=== PATIENT | female | born 1995 | race Two or more races ===

== ENCOUNTER 2018-05-30 16:15 | Emergency (ER) | payer MEDICAID ==
--- NOTE | 2018-05-30 16:52 | EDPHY ---
H & P Stated Complaint: twisted right ankle 3 days ago, painful and swollen Time Seen by Provider: 05/30/18 16:48 HPI/ROS: HPI: This is a 23-year-old female who presents with Chief Complaint: twisted right ankle 3 days ago, painful and swollen Location: right ankle Quality: Injury Duration: 3 days ago Signs and Symptoms: No bleeding, no radiation, no numbness, no weakness, no tingling, no incontinence, no decreased range of motion, + swelling, + pain, no fever Timing: Acute Severity: 06/19 Context: Patient reports that she accidentally tripped and twisted her right ankle 3 days ago. She reports that she felt immediate, constant, nonradiating pain. Patient reports that she twisted her ankle but unsure which direction. The ankle started to swell within 12-24 hours. She notes bruising around the area in the medial aspect. She notes pain with increased weight-bearing. She reports that she had a right ankle sprain approximately 3 months ago while she was in [place] and placed in walking boot. She has been using this walking boot. She notes increased pain with weight-bearing. Denies LOC/head injury/ neck pain/dizziness/nausea/vomiting/amnesia. No primary care provider. Modifying Factors: Walking boot Comment: ROS: A comprehensive 10 system review of systems is otherwise negative aside from elements mentioned in the history of present illness. MEDICAL/SURGICAL/SOCIAL HISTORY: Medical history: Generally healthy. Does not take any regular medications. Currently on menses. Surgical history: Denies Social history: Originally from [place]. Current every day smoker. Denies alcohol and drug use. CONSTITUTIONAL: Polite and cooperative young adult black female, awake and alert, no obvious distress HEENT: Atraumatic and normocephalic. NECK: supple, no midline tenderness, flexion 45 degrees, extension 45 degrees, right and left lateral flexion 45 degrees. No meningismus. Cardiovascular: Normal S1/S2, regular rate, regular rhythm, without murmur rub or gallop. PULMONARY/CHEST: Symmetrical and nontender. Clear to auscultation bilaterally. Good air movement. No accessory muscle usage. ABDOMEN: Soft, nondistended, nontender. EXTREMITIES: 2/2 pulses, strength 5/5, right Ankle: Moderate medial malleolus swelling with ecchymosis black in color, Plantar flexion to 50, dorsiflexion to 20. Foot inversion to 35 degree. Mild tenderness/swelling Anterior talofibular ligament. Mild tenderness/swelling Calcaneofibular ligament, no tenderness/swelling posterior talofibular ligament, no tenderness/swelling posterior inferior tibiofibular ligament. Achilles tendon intact. DIP/PIP/MCP flexion/extension intact with good light touch sensation. no deformities, no clubbing, no cyanosis or edema. NEUROLOGICAL: no focal neuro deficits. GCS 15. Light touch sensation intact. SKIN: Warm and dry, no erythema. no rash. Good capillary refill. Source: Patient Exam Limitations: No limitations - Personal History LMP (Females 10-55): Now Current Tetanus Diphtheria and Acellular Pertussis (TDAP): Yes - Medical/Surgical History Hx Asthma: No Hx Chronic Respiratory Disease: No Hx Diabetes: No Hx Cardiac Disease: No Hx Renal Disease: No Hx Cirrhosis: No Hx Alcoholism: No Hx HIV/AIDS: No Hx Splenectomy or Spleen Trauma: No - Social History Smoking Status: Light smoker Constitutional: Initial Vital Signs Temperature (C) 36.8 C 05/30/18 16:20 Heart Rate 89 05/30/18 16:20 Respiratory Rate 16 05/30/18 16:20 Blood Pressure 134/75 H 05/30/18 16:20 O2 Sat (%) 97 05/30/18 16:20 O2 Delivery Mode Room Air Allergies/Adverse Reactions: nome Allergy (Verified 05/30/18 16:25) Home Medications: Medication Instructions Recorded NK [No Known Home Meds] 05/30/18 Medical Decision Making - Diagnostics Imaging Results: Imaging Impressions Ankle X-Ray 05/30/18 16:53 Impression: 1. Medial ankle sprain. 2. No acute fracture about the right ankle. Procedures: Procedure: Splint placement. A locking boot and crutches were applied. After application of the splint I returned and re-examined the patient. The splint was adequately immobilizing the joint and distal to the splint the patient's circulation and sensation was intact. ED Course/Re-evaluation: Vital signs reviewed and stable upon arrival. Right ankle x-ray ordered and my read shows no fracture, dislocation Patient has walking boot already, crutches provided, orthopedic follow-up as needed No signs of neurovascular compromise/tenting of skin/compartment syndrome/ extremities and joints examined above and below area of concern and are neurovascularly intact. This patient was seen under the supervision of my secondary supervising physician. I evaluated care for this patient independently. Discussed this patient with Dr. Gardner. Differential Diagnosis: Ankle injury differential diagnosis includes but is not limited to tibia fracture, fibula fracture, metatarsal fracture, LisFranc fracture, achilles tendon rupture, sprain. Departure - Departure Disposition: Home, Routine, Self-Care Clinical Impression: Sprain of right ankle Qualifiers: Encounter type: initial encounter Involved ligament of ankle: unspecified ligament Qualified Code(s): S93.401A - Sprain of unspecified ligament of right ankle, initial encounter Condition: Good Instructions: Ankle Sprain (DC), Crutch Instructions (ED) Additional Instructions: Wear the walking boot while out of bed until pain free. Use crutches to aid ambulation. Start with toe-touch weight-bearing status. Take Tylenol 650 mg every 4 hours and/or Ibuprofen 600 mg every 8 hours with food as needed for pain. Apply ice for 30 minutes at a time; 2-3 times per day for the next 1-2 days. Follow up with Orthopedics in 1-2 weeks if symptoms persist at which time they will evaluate and recommend with you if conservative management versus further imaging is indicated. The x-rays obtained in the emergency department today demonstrate no evidence of an obvious fracture. Sometimes fractures are not obvious on the initial set of x-rays performed in the ED. For this reason, you should have repeat x-rays performed in 7-10 days if you are having any pain exclude the possibility of an occult fracture. Referrals: Tobin Salinas MD [Medical Doctor] - As per Instructions
[2018-05-30] MEDS ORDERED: IBUPROFEN 600 MG TAB PO ONE ×2 (17:49→17:50)
[2018-05-30 17:56] VITALS: BP 138/86
== END 2018-05-30 17:57 | disposition home or self-care (01) ==
DX: S93.401A Sprain of unspecified ligament of right ankle, initial encounter (principal); W01.0XXA Fall on same level from slipping, tripping and stumbling without subsequent striking against object, initial encounter; X50.1XXA Overexertion from prolonged static or awkward postures, initial encounter; Y99.9 Unspecified external cause status

== ENCOUNTER 2018-07-23 20:52 | Emergency (ER) | payer MEDICAID ==
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
[2018-07-23 21:03] VITALS: BP 102/45
== END 2018-07-23 21:01 ==
LOC: EDUNIT#
DX: Z02.89 Encounter for other administrative examinations (principal)